=== PATIENT | female | born 1975 | race Caucasian/White ===

== ENCOUNTER 2017-09-27 16:24 | Emergency (ER) | payer OTHER ==
[2017-09-27 17:19] LABS: Hematocrit 43.8 % (35-47); Hemoglobin 14.6 gm/dl (12.0-16.0); Mean Cell Volume 98.9 fl (78-100); Mean Corpuscular Hgb Concent. 33.3 g/dl (32-36); Mean Platelet Volume 11.1 fl (6-9.5); Platelet Count 273 K/mm3 (150-450); Red Blood Count 4.43 M/mm3 (4.1-5.4); Red Cell Distribution Width 12.9 % (11.5-14.0); White Blood Count 6.5 K/mm3 (4.0-10.5)
[2017-09-27 17:33] LABS: ALBUMIN 4.1 g/dL (3.5-5.0); ALKALINE PHOSPHATASE 99 U/L (38-126); ANION GAP 11.9 MEQ/L (5-15); BLOOD UREA NITROGEN 12 mg/dL (7-17); CHLORIDE 107 mmol/L (98-107); Calcium 9.1 mg/dL (8.4-10.2); Carbon Dioxide 28 mmol/L (22-30); Creatinine 1 0.77 mg/dL (0.52-1.04); Glucose 95 mg/dL (74-106); Potassium 3.6 mmol/L (3.5-5.1); SGOT/AST 96 U/L (14-36); SGPT/ALT 79 U/L (0-35); SODIUM 143 mmol/L (137-145); Total Protein 7.1 g/dL (6.3-8.2)
[2017-09-27 18:45] VITALS: O2SAT 97
[2017-09-27 18:59] VITALS: BP 113/70; PULSE 62
[2017-09-27 19:04] LABS: Appearance CLEAR (CLEAR); Bilirubin NEGATIVE (NEGATIVE); Blood NEGATIVE Ery/ul (0-5); Glucose NEGATIVE (NEGATIVE); Ketones NEGATIVE (NEGATIVE); Leukocyte Esterase NEGATIVE (NEGATIVE); Nitrite NEGATIVE (NEGATIVE); Protein,Urine Dip NEGATIVE (Negative); Specific Gravity 1.005 (1.005-1.025); Urobilinogen NORMAL mg/dL (0-1)
--- NOTE | 2017-09-27 19:21 | ERPHSYRPT ---
- History of Present Illness Time Seen by Provider: 09/27/17 19:12 Historian: patient Exam Limitations: no limitations Patient Subjective Stated Complaint: Pt states "I have had diarrhea since yesterday, I have been nauseated and I just do not feel well." Triage Nursing Assessment: Pt alert and oriented X 3, skin pwd. Pt ambulates with an upright steady gait, able to speak in clear full sentences. Pt in no apparent respiratory distress. Allergies/Adverse Reactions: cephalexin monohydrate [From Keflex] Allergy (Severe, Verified 03/17/15 06:18) Difficulty Breathing throat swells closed morphine Allergy (Severe, Verified 03/17/15 06:18) Difficulty Breathing throat swells closed prednisone Allergy (Severe, Verified 03/17/15 06:18) Difficulty Breathing throat swells closed Home Medications: Diazepam [Valium] 1 tab PO Q6-8HPRN PRN 03/12/15 [History] Tizanidine HCl [Zanaflex] 1 tab PO Q6-8HPRN PRN 03/12/15 [History] Furosemide [Furosemide] 20 mg PO DAILY 09/27/17 [History] Gabapentin [Gabapentin] 600 mg PO DAILY 09/27/17 [History] Lisdexamfetamine Dimesylate [Vyvanse] 50 mg PO DAILY 09/27/17 [History] Meloxicam [Meloxicam] 15 mg PO DAILY 09/27/17 [History] Potassium Chloride 10 Meq Tab* [Klor Con 10 MEQ] 10 meq PO DAILY 09/27/17 [ History] Tizanidine HCl [Tizanidine HCl] 4 mg PO DAILY 09/27/17 [History] Hx Tetanus, Diphtheria Vaccination/Date Given: Yes Hx Influenza Vaccination/Date Given: Yes Hx Pneumococcal Vaccination/Date Given: No Immunizations Up to Date: Yes - Past Medical History Pertinent Past Medical History: Yes Neurological History: No Pertinent History, Migraines ENT History: No Pertinent History Cardiac History: Other Respiratory History: Other Endocrine Medical History: No Pertinent History Musculoskeletal History: Arthritis, Fibromyalgia, Other GI Medical History: GERD, Ulcer, Other History: No Pertinent History Female Reproductive Disorders: Endometriosis Other Medical History: wore holter monitor 4 years ago with nothing diagnosed and problems gone after dx with fibromyalgia and started on meds for the fibromyalgia, patient has had a hx of pleursy, has back and neck pain related to herniated disc in back and neck, patient has had a hx of low iron count - Past Surgical History Past Surgical History: Yes Neuro Surgical History: No Pertinent History Cardiac: No Pertinent History Respiratory: No Pertinent History Gastrointestinal: No Pertinent History Genitourinary: No Pertinent History Musculoskeletal: No Pertinent History Female Surgical History: Section, Hysterectomy Other Surgical History: c section x2 - Social History Smoking Status: Current every day smoker How long have you smoked: years Exposure to second hand smoke: Yes Drug Use: none Patient Lives Alone: No - Female History Hx Last Menstrual Period: hysterectomy Hx Now: No - Nursing Vital Signs Nursing Vital Signs: Initial Vital Signs Temperature 97.9 F 09/27/17 16:30 Pulse Rate 82 09/27/17 16:30 Respiratory Rate 16 09/27/17 16:30 Blood Pressure 139/81 09/27/17 16:30 O2 Sat by Pulse Oximetry 98 09/27/17 16:30 Pain Scale Pain Intensity 6 - Physical Exam SpO2: 97 Oxygen Delivery: Room Air Ordered Tests: Active Orders 24 hr Category Date Time Status CBC Stat Lab 09/27/17 16:40 Completed CMP Stat Lab 09/27/17 16:40 Completed UA W/RFX UR CULTURE Stat Lab 09/27/17 18:56 Completed Lab/Rad Data: Laboratory Result Diagrams 09/27/17 16:40 09/27/17 16:40 Laboratory Results 09/27/17 09/27/17 09/27/17 Range/Units 18:56 16:40 16:40 WBC 6.5 (4.0-10.5) K/mm3 RBC 4.43 (4.1-5.4) M/mm3 Hgb 14.6 (12.0-16.0) gm/dl Hct 43.8 (35-47) % MCV 98.9 (78-100) fl MCH 33.0 H (26-32) pg MCHC 33.3 (32-36) g/dl RDW 12.9 (11.5-14.0) % Plt Count 273 (150-450) K/mm3 MPV 11.1 H (6-9.5) fl Sodium 143 (137-145) mmol/L Potassium 3.6 (3.5-5.1) mmol/L Chloride 107 (98-107) mmol/L Carbon Dioxide 28 (22-30) mmol/L Anion Gap 11.9 (5-15) MEQ/L BUN 12 (7-17) mg/dL Creatinine 0.77 (0.52-1.04) mg/dL Estimated GFR > 60.0 ML/MIN Glucose 95 (74-106) mg/dL Calcium 9.1 (8.4-10.2) mg/dL Total Bilirubin 0.30 (0.2-1.3) mg/dL AST 96 H (14-36) U/L ALT 79 H (0-35) U/L Alkaline Phosphatase 99 (38-126) U/L Serum Total Protein 7.1 (6.3-8.2) g/dL Albumin 4.1 (3.5-5.0) g/dL Ur Collection Type VOID Urine Color LT.YELLOW (YELLOW) Urine Appearance CLEAR (CLEAR) Urine pH 8.0 (5-6) Ur Specific [place] 1.005 (1.005-1.025) Urine Protein NEGATIVE (Negative) Urine Ketones NEGATIVE (NEGATIVE) Urine Blood NEGATIVE (0-5) Henrique/ul Urine Nitrite NEGATIVE (NEGATIVE) Urine Bilirubin NEGATIVE (NEGATIVE) Urine Urobilinogen NORMAL (0-1) mg/dL Ur Leukocyte Esterase NEGATIVE (NEGATIVE) Urine Culture Reflexed NO (NO) Urine Glucose NEGATIVE (NEGATIVE) mg/dL Specimen Received 09/27/17 1845 - Departure Referrals: SIA WHITFIELD [Primary Care Provider] -
[2017-09-27] MEDS ORDERED: Pepcid 20 MG VIAL IV ONE (19:22)
[2017-09-27] MEDS ORDERED: Sodium Chloride 0.9% 1000 ML 1,000 ML IV STA (19:22)
[2017-09-27] MEDS ORDERED: Phenergan 25 MG INJ IV ONE (19:22)
--- NOTE | 2017-09-27 19:27 | ERPHSYRPT ---
- History of Present Illness Time Seen by Provider: 09/27/17 19:12 Source: patient Exam Limitations: no limitations Patient Subjective Stated Complaint: Pt states "I have had diarrhea since yesterday, I have been nauseated and I just do not feel well." Triage Nursing Assessment: Pt alert and oriented X 3, skin pwd. Pt ambulates with an upright steady gait, able to speak in clear full sentences. Pt in no apparent respiratory distress. Physician History: The patient is a 42-year-old female with her family complaining that she has nausea, vomiting, and diarrhea that began yesterday. She left work yesterday because of the illness. She may not be able to go to work again tonight. She denies fever or chills. She has not been able to "keep anything down". She has not been able to take any of her medicines. The diarrhea has gone from loose stools to water. She denies abdominal pain to me. She denies being lightheaded. Past medical history is significant for fibromyalgia. Timing/Duration: yesterday Severity: moderate Modifying Factors: Improves With: eating (worse) Associated Symptoms: nausea, vomiting, No abdominal pain, No fever Allergies/Adverse Reactions: cephalexin monohydrate [From Keflex] Allergy (Severe, Verified 03/17/15 06:18) Difficulty Breathing throat swells closed morphine Allergy (Severe, Verified 03/17/15 06:18) Difficulty Breathing throat swells closed prednisone Allergy (Severe, Verified 03/17/15 06:18) Difficulty Breathing throat swells closed Home Medications: Diazepam [Valium] 1 tab PO Q6-8HPRN PRN 03/12/15 [History] Tizanidine HCl [Zanaflex] 1 tab PO Q6-8HPRN PRN 03/12/15 [History] Furosemide [Furosemide] 20 mg PO DAILY 09/27/17 [History] Gabapentin [Gabapentin] 600 mg PO DAILY 09/27/17 [History] Lisdexamfetamine Dimesylate [Vyvanse] 50 mg PO DAILY 09/27/17 [History] Meloxicam [Meloxicam] 15 mg PO DAILY 09/27/17 [History] Potassium Chloride 10 Meq Tab* [Klor Con 10 MEQ] 10 meq PO DAILY 09/27/17 [ History] Tizanidine HCl [Tizanidine HCl] 4 mg PO DAILY 09/27/17 [History] Hx Tetanus, Diphtheria Vaccination/Date Given: Yes Hx Influenza Vaccination/Date Given: Yes Hx Pneumococcal Vaccination/Date Given: No Immunizations Up to Date: Yes - Review of Systems Constitutional: No Fever, No Chills Eyes: No Symptoms Ears, Nose, & Throat: No Symptoms Respiratory: No Cough, No Dyspnea Cardiac: No Chest Pain, No Edema, No Syncope Abdominal/Gastrointestinal: Nausea, Vomiting, Diarrhea, No Abdominal Pain Genitourinary Symptoms: No Dysuria Musculoskeletal: No Back Pain, No Neck Pain Skin: No Rash Neurological: No Dizziness, No Focal Weakness, No Sensory Changes Psychological: No Symptoms Endocrine: No Symptoms Hematologic/Lymphatic: No Symptoms Immunological/Allergic: No Symptoms All Other Systems: Reviewed and Negative - Past Medical History Pertinent Past Medical History: Yes Neurological History: No Pertinent History, Migraines ENT History: No Pertinent History Cardiac History: Other Respiratory History: Other Endocrine Medical History: No Pertinent History Musculoskeletal History: Arthritis, Fibromyalgia, Other GI Medical History: GERD, Ulcer, Other History: No Pertinent History Female Reproductive Disorders: Endometriosis Other Medical History: wore holter monitor 4 years ago with nothing diagnosed and problems gone after dx with fibromyalgia and started on meds for the fibromyalgia, patient has had a hx of pleursy, has back and neck pain related to herniated disc in back and neck, patient has had a hx of low iron count - Past Surgical History Past Surgical History: Yes Neuro Surgical History: No Pertinent History Cardiac: No Pertinent History Respiratory: No Pertinent History Gastrointestinal: No Pertinent History Genitourinary: No Pertinent History Musculoskeletal: No Pertinent History Female Surgical History: Section, Hysterectomy Other Surgical History: c section x2 - Social History Smoking Status: Current every day smoker How long have you smoked: years Exposure to second hand smoke: Yes Drug Use: none Patient Lives Alone: No - Female History Hx Last Menstrual Period: hysterectomy Hx Now: No - Nursing Vital Signs Nursing Vital Signs: Initial Vital Signs Temperature 97.9 F 09/27/17 16:30 Pulse Rate 82 09/27/17 16:30 Respiratory Rate 16 09/27/17 16:30 Blood Pressure 139/81 09/27/17 16:30 O2 Sat by Pulse Oximetry 98 09/27/17 16:30 Pain Scale Pain Intensity 6 - Physical Exam General Appearance: no apparent distress, alert Eye Exam: PERRL/EOMI, eyes nml inspection Ears, Nose, Throat Exam: normal ENT inspection, TMs normal, pharynx normal, moist mucous membranes Neck Exam: normal inspection, non-tender, supple, full range of motion Respiratory Exam: normal breath sounds, lungs clear, No respiratory distress Cardiovascular Exam: regular rate/rhythm, normal heart sounds, normal peripheral pulses Gastrointestinal/Abdomen Exam: soft, normal bowel sounds, No tenderness, No mass Back Exam: normal inspection, normal range of motion, No CVA tenderness, No vertebral tenderness Extremity Exam: normal inspection, normal range of motion, pelvis stable Neurologic Exam: alert, oriented x 3, cooperative, normal mood/affect, nml cerebellar function, nml station & gait, sensation nml, No motor deficits Skin Exam: normal color, warm, dry, No rash Lymphatic Exam: No adenopathy SpO2: 97 Oxygen Delivery: Room Air Ordered Tests: Active Orders 24 hr Category Date Time Status IV Insertion STAT Care 09/27/17 19:22 Active KUB Stat Exams 09/27/17 19:23 Ordered BMP Stat Lab 09/27/17 19:22 Ordered CBC Stat Lab 09/27/17 16:40 Completed CBC W DIFF Stat Lab 09/27/17 19:22 Ordered CMP Stat Lab 09/27/17 16:40 Completed HCG QUALITATIVE,SERUM Stat Lab 09/27/17 Ordered Lactic Acid Stat Lab 09/27/17 19:22 Ordered UA W/RFX UR CULTURE Stat Lab 09/27/17 18:56 Completed Medication Summary Generic Name Dose Route Start Last Admin Trade Name Freq PRN Reason Stop Dose Admin Sodium Chloride 1,000 mls @ 999 mls/hr 09/27/17 19:22 Sodium Chloride 0.9% 1000 Ml IV 09/27/17 20:22 .Q1H1M STA Discontinued Medications Generic Name Dose Route Start Last Admin Trade Name Freq PRN Reason Stop Dose Admin Famotidine 20 mg 09/27/17 19:22 Pepcid 20 Mg Vial IV 09/27/17 19:23 STAT ONE Promethazine HCl 25 mg 09/27/17 19:22 Phenergan 25 Mg Inj IV 09/27/17 19:23 STAT ONE Lab/Rad Data: Laboratory Result Diagrams 09/27/17 16:40 09/27/17 16:40 Laboratory Results 09/27/17 09/27/1709/27/18 Range/Units 18:56 16:40 16:40 WBC 6.5 (4.0-10.5) K/mm3 RBC 4.43 (4.1-5.4) M/mm3 Hgb 14.6 (12.0-16.0) gm/dl Hct 43.8 (35-47) % MCV 98.9 (78-100) fl MCH 33.0 H (26-32) pg MCHC 33.3 (32-36) g/dl RDW 12.9 (11.5-14.0) % Plt Count 273 (150-450) K/mm3 MPV 11.1 H (6-9.5) fl Sodium 143 (137-145) mmol/L Potassium 3.6 (3.5-5.1) mmol/L Chloride 107 (98-107) mmol/L Carbon Dioxide 28 (22-30) mmol/L Anion Gap 11.9 (5-15) MEQ/L BUN 12 (7-17) mg/dL Creatinine 0.77 (0.52-1.04) mg/dL Estimated GFR > 60.0 ML/MIN Glucose 95 (74-106) mg/dL Calcium 9.1 (8.4-10.2) mg/dL Total Bilirubin 0.30 (0.2-1.3) mg/dL AST 96 H (14-36) U/L ALT 79 H (0-35) U/L Alkaline Phosphatase 99 (38-126) U/L Serum Total Protein 7.1 (6.3-8.2) g/dL Albumin 4.1 (3.5-5.0) g/dL Ur Collection Type VOID Urine Color LT.YELLOW (YELLOW) Urine Appearance CLEAR (CLEAR) Urine pH 8.0 (5-6) Ur Specific [place] 1.005 (1.005-1.025) Urine Protein NEGATIVE (Negative) Urine Ketones NEGATIVE (NEGATIVE) Urine Blood NEGATIVE (0-5) Henrique/ul Urine Nitrite NEGATIVE (NEGATIVE) Urine Bilirubin NEGATIVE (NEGATIVE) Urine Urobilinogen NORMAL (0-1) mg/dL Ur Leukocyte Esterase NEGATIVE (NEGATIVE) Urine Culture Reflexed NO (NO) Urine Glucose NEGATIVE (NEGATIVE) mg/dL Specimen Received 09/27/17 1845 - Progress Progress Note: 09/27/17 19:30 The pt was asleep when I enter the room. Pt unfortunately was not seen quickly due to large influx of pts. I saw pt quickly after arriving. Pt seemed upset after waking up. I had ordered labs and meds for her. Pt decided to leave AMA. - Departure Time of Disposition: 19:32 Departure Disposition: AMA Clinical Impression: Gastroenteritis Condition: Stable Critical Care Time: No Referrals: SIA WHITFIELD [Primary Care Provider] -
== END 2017-09-27 19:39 | disposition left against medical advice (07) ==
LOC: ED 16:24
DX: K52.9 Noninfective gastroenteritis and colitis, unspecified (principal); R11.2 Nausea with vomiting, unspecified; Z79.899 Other long term (current) drug therapy
CPT/HCPCS: 36415; 80053; 81002; 85027; 99283

== ENCOUNTER 2019-12-13 06:41 | Day surgery (SDC) | payer OTHER ==
[~2019-12-13 06:41] MED LIST: Lactated Ringers 1,000 ML IV SCH
[2019-12-13] MEDS ORDERED: Ketamine HCl 50 MG/ML ONE (08:01)
[2019-12-13] MEDS ORDERED: DIPRIVAN 200 MG/20 ML IV ONE ×2 (08:01→08:39)
--- NOTE | 2019-12-13 09:12 | OP ---
SURGERY DATE/TIME: 12/13/2019813 PREOPERATIVE DIAGNOSIS: Epigastric pain and history of colon polyps. POSTOPERATIVE DIAGNOSES: 1) Mild gastritis. 2) Small polyps in the sigmoid colon. PROCEDURES: 1) EGD with cold forceps biopsy. 2) Colonoscopy with cold forceps biopsy. SURGEON: Dr. Griggs. ANESTHESIA: MAC. Medications given by anesthesia department. HISTORY: The patient is a 44 year old white female presenting now for endoscopic evaluation. She reports that she has been having problems with epigastric pain over the past few months. She reports that she was told previously not to take [id number] medicines but she has been taking Excedrin for migraine headaches which she knows she is not supposed to do. She also takes proton pump inhibitor medication. She wishes to have endoscopic evaluation of her stomach. She also has history of colon polyps where multiple polyps were removed the last visit a few years ago. The patient was felt the need to have endoscopic evaluation. She was appraised of the risks of the procedure including the risk of perforation, phlebitis, untoward reaction to medication, bleeding and missed lesions. The patient verbalized her understanding and desired to have the procedure performed. DESCRIPTION OF PROCEDURE: The patient was given the medications by the anesthesia department. She had continuous pulse oximetry, ECG monitoring, intermittent blood pressure monitoring and tidal CO2 monitoring during the examination. She was placed in the left lateral decubitus position. A bite block was placed. The flexible Olympus gastroscope was used to intubate the oropharynx. A view of the larynx was obtained and was normal. The scope was easily passed in the esophagus which was normal throughout its length. The stomach was entered where normal gastric rugal folds were seen and these distended nicely with insufflation of air. The scope was passed along the greater curvature of the stomach to the antrum. The pylorus encountered and intubated. Duodenum inspected found to be normal. The scope is withdrawn towards the stomach. A retroflex view was obtained of the lesser curvature, fundus and cardia regions of the stomach and these appeared to be essentially normal. The scope was then redirected towards the gastric antrum. Biopsies were obtained to rule out the presence of Helicobacter pylori-type organisms and to confirm the presence of gastritis. The scope was removed from the patient. Next, a digital rectal examination was performed and revealed normal anal sphincter tone and no masses. The flexible Olympus pediatric colonoscope was used to intubate the rectum. A view of the colon was developed sequentially to the cecum. Pictures obtained from the ileocecal valve and appendiceal orifice. Upon insertion and withdrawal, including a retroflex view in the rectum was noted small polyps in the sigmoid colon and these were biopsied using cold biopsy technique to determine the nature of the lesions. The scope was removed from the patient who tolerated the procedure well and was sent back to OP recovery in good condition. The prep was noted to be fair with liquid stool noted essentially throughout the colon. However, we were able to see the mucosa fairly well.
[2019-12-13 09:30] VITALS: PULSE 77; O2SAT 99
[2019-12-13 09:39] VITALS: BP 110/71
== END 2019-12-13 09:35 | disposition home or self-care (01) ==
LOC: SDC 06:41
PROVIDERS: ATTEND Family Medicine
DX: Z09 Encounter for follow-up examination after completed treatment for conditions other than malignant neoplasm (principal); Z86.010 Personal history of colon polyps; D12.5 Benign neoplasm of sigmoid colon; D12.8 Benign neoplasm of rectum; R10.13 Epigastric pain; K29.70 Gastritis, unspecified, without bleeding
CPT/HCPCS: J2704

== ENCOUNTER 2020-07-29 17:13 | Emergency (ER) | payer OTHER ==
[2020-07-29] MEDS ORDERED: Sodium Chloride 0.9% 1000 ML 1,000 ML IV STA (17:37)
[2020-07-29] MEDS ORDERED: Sodium Chloride 0.9% 1000 ML 1,000 ML ONE (17:42)
[2020-07-29 17:54] LABS: Absolute Neutrophil Ct (ANC) 6.22 (1.4-6.9); BASOPHIL % 0.2 % (0.0-0.4); Basophil (Absolute #) 0.02 (0-0.4); Eosinophil % 1.6 % (0.00-5.0); Eosinophil (Absolute #) 0.17 (0-0.5); Hematocrit 39.4 % (35-47); Hemoglobin 12.5 gm/dl (12.0-16.0); Lymphocytes % 32.5 % (24.0-44.0); Mean Cell Volume 100.5 fl (78-100); Mean Corpuscular Hemoglobin 31.9 pg (26-32); Mean Corpuscular Hgb Concent. 31.7 g/dl (32-36); Mean Platelet Volume 9.6 fl (7.5-11.0); Monocyte (Absolute #) 0.86 (0.0-1.3); Neutrophil % 57.7 % (36.0-66.0); Platelet Count 395 K/mm3 (150-450); Red Blood Count 3.92 M/mm3 (4.1-5.4); Red Cell Distribution Width 13.8 % (11.5-14.0); White Blood Count 10.8 K/mm3 (4.0-10.5)
[2020-07-29 18:00] LABS: Appearance SLIGHTLY CLOUDY (CLEAR); Bacteria RARE /HPF (NEGATIVE); Bilirubin NEGATIVE (NEGATIVE); Blood NEGATIVE Ery/ul (0-5); Epithelial Cells RARE /HPF (FEW); Glucose NEGATIVE (NEGATIVE); Ketones NEGATIVE (NEGATIVE); Leukocyte Esterase NEGATIVE (NEGATIVE); Mucus SLIGHT /HPF (NEGATIVE); Nitrite NEGATIVE (NEGATIVE); Protein,Urine Dip NEGATIVE (Negative); RBC NONE SEEN /HPF (0-2); Specific Gravity 1.019 (1.005-1.025); Urobilinogen NEGATIVE mg/dL (0-1); WBC 0-2 /HPF (0-5)
[2020-07-29 18:07] LABS: ALBUMIN 4.3 g/dL (3.5-5.0); BILIRUBIN,TOTAL 0.2 mg/dL (0.2-1.3); Calcium 9.3 mg/dL (8.4-10.2); Creatinine 1 1.29 mg/dL (0.52-1.04); EST GLOMERULAR FILTRATION RATE 47.1 ML/MIN; MAGNESIUM 1.9 mg/dL (1.6-2.3); Potassium 3.9 mmol/L (3.5-5.1); Total Protein 7.1 g/dL (6.3-8.2)
[2020-07-29 18:11] LABS: Amphetamine,Urine NEGATIVE (NEGATIVE); Barbiturate,Urine NEGATIVE (NEGATIVE); Benzodiazepine,Urine POSITIVE (NEGATIVE); Cocaine,Urine NEGATIVE (NEGATIVE); Methadone,Urine NEGATIVE (NEGATIVE); Opiate,Urine NEGATIVE (NEGATIVE); PCP,Urine NEGATIVE (NEGATIVE); THC,Urine POSITIVE (NEGATIVE)
[2020-07-29] MEDS ORDERED: TYLENOL 325 MG PO ONE (19:11)
[2020-07-29] MEDS ORDERED: TORAdol 30 mg Injection IV ONE (19:11)
[2020-07-29] MEDS ORDERED: Reglan 10 MG/2 ML IV ONE (19:11)
[2020-07-29] MEDS ORDERED: BABY ASPIRIN 81 MG CHEW PO ONE (19:12)
[2020-07-29] MEDS ORDERED: BENADRYL 50 MG/ML IV ONE (19:12)
[2020-07-29] MEDS ORDERED: BABY ASPIRIN 81 MG CHEW ONE (19:18)
[2020-07-29] MEDS ORDERED: Reglan 10 MG/2 ML ONE (19:18)
[2020-07-29] MEDS ORDERED: BENADRYL 50 MG/ML ONE (19:18)
[2020-07-29] MEDS ORDERED: TYLENOL 325 MG ONE (19:18)
[2020-07-29] MEDS ORDERED: TORAdol 30 mg Injection ONE (19:18)
[2020-07-29 19:59] VITALS: BP 104/70; PULSE 70; O2SAT 96
--- NOTE | 2020-07-29 20:00 | ERPHSYRPT ---
- History of Present Illness Time Seen by Provider: 07/29/20 17:52 Source: patient Exam Limitations: no limitations Patient Subjective Stated Complaint: Pt states that for the past week she has felt like she has heartburn but no pain but more like a tightness, states that she has pain below the left breast that radiates to the back, reports falling a lot this week, nauseous and can't eat but denies vomiting, extremely fatigued Triage Nursing Assessment: Pt brought self to the ER, vitals wnl, rates pain as 8/10, denies pain to abdomen w/and w/o palpatation, pain in the rib area below the left breast that radiates to the back, pulses normal, normal sinus, skin n/w/d, doesn't appear to be in any distress Physician History: 45 years old female with history of anxiety, fibromyalgia, tobacco abuse, COPD, chronic presented in the ER with chief complaint of chest tightness mostly in the left side which wraps around underneath her left breast for mild to moderate intensity without any significant aggravating or relieving factors but has noticed some increased chest tightness and burning sensation with activity. She does have history of acid reflux and has been taking medication which seem to be helping in this seems different. Denies any chest pain. Does have minimal productive smoker cough. Denies any fever or chills. Patient also reports having off-and-on headache since she got kicked on her left anterior forehead by her dog almost a week ago. She did not lose consciousness but her symptoms started afterwards. She feels foggy at times, wobbly and feel weakness all over. She denies any focal numbness tingling or weakness but generalized. Denies any difficulty speech. No abdominal pain nausea or vomiting. Timing/Duration: week(s) (2), intermittent, gradual onset, worse Severity: moderate Modifying Factors: Improves With: rest. Worsens With: movement Associated Symptoms: shortness of breath, heartburn, cough, chest pain, headaches, loss of appetite, malaise, weakness, No chills Allergies/Adverse Reactions: cephalexin monohydrate [From Keflex] Allergy (Severe, Verified 07/29/20 17:28) Difficulty Breathing throat swells closed morphine Allergy (Severe, Verified 07/29/20 17:28) Difficulty Breathing throat swells closed prednisone Allergy (Severe, Verified 07/29/20 17:28) Difficulty Breathing throat swells closed Home Medications: Diazepam [Valium] 1 tab PO Q6-8HPRN PRN 03/12/15 [History] Tizanidine HCl [Zanaflex] 1 tab PO Q6-8HPRN PRN 03/12/15 [History] Gabapentin 600 mg PO DAILY 09/27/17 [History] Potassium Chloride 10 Meq Tab* [Klor Con 10 MEQ] 10 meq PO DAILY 09/27/17 [History] Fenofibrate Nanocrystallized [Fenofibrate] 145 mg PO DAILY 12/11/19 [History] Omeprazole Magnesium [Prilosec] 40 mg PO BID 12/11/19 [History] Rosuvastatin Calcium [Crestor] 10 mg PO DAILY 12/11/19 [History] Trazodone HCl 50 mg [Desyrel 50 mg] 50 mg PO HS 12/11/19 [History] Hydroxyzine HCl 25 mg [Atarax 25 mg] 25 mg PO UD PRN 07/29/20 [History] Topiramate 25 mg PO DAILY 07/29/20 [History] Hx Tetanus, Diphtheria Vaccination/Date Given: Yes Hx Influenza Vaccination/Date Given: Yes Hx Pneumococcal Vaccination/Date Given: No Travel Risk - International Travel Have you traveled outside of the country in past 3 weeks: No - Coronavirus Screening Are you exhibiting any of the following symptoms?: No - Vaccine Status Have you recieved a Covid-19 vaccination: No - Review of Systems Constitutional: No Symptoms Eyes: No Symptoms Ears, Nose, & Throat: No Symptoms Respiratory: Cough, Dyspnea, Wheezing Cardiac: Chest Pain Abdominal/Gastrointestinal: No Symptoms Genitourinary Symptoms: No Symptoms Musculoskeletal: Myalgias Skin: No Symptoms Neurological: Gait Changes, Tremors, No Focal Weakness Psychological: Anxiety Endocrine: Polydipsia Hematologic/Lymphatic: No Symptoms Immunological/Allergic: No Symptoms - Past Medical History Pertinent Past Medical History: Yes Neurological History: No Pertinent History, Migraines ENT History: No Pertinent History Cardiac History: Other Respiratory History: Other Endocrine Medical History: No Pertinent History Musculoskeletal History: Arthritis, Fibromyalgia, Other GI Medical History: GERD, Ulcer, Other History: No Pertinent History Psycho-Social History: No Pertinent History Female Reproductive Disorders: Endometriosis Other Medical History: wore holter monitor 4 years ago with nothing diagnosed and problems gone after dx with fibromyalgia and started on meds for the fibromyalgia, patient has had a hx of pleursy, has back and neck pain related to herniated disc in back and neck, patient has had a hx of low iron count - Past Surgical History Past Surgical History: Yes Neuro Surgical History: No Pertinent History Cardiac: No Pertinent History Respiratory: No Pertinent History Gastrointestinal: No Pertinent History Genitourinary: No Pertinent History Musculoskeletal: No Pertinent History Female Surgical History: Section, Hysterectomy Other Surgical History: c section x2 - Social History Smoking Status: Current every day smoker How long have you smoked: years Exposure to second hand smoke: Yes Drug Use: none Patient Lives Alone: No - Female History Hx Now: No (hysterectomy) - Nursing Vital Signs Nursing Vital Signs: Initial Vital Signs Temperature 98.1 F 07/29/20 17:14 Pulse Rate 80 07/29/20 17:14 Respiratory Rate 17 07/29/20 17:14 Blood Pressure 105/78 07/29/20 17:14 O2 Sat by Pulse Oximetry 97 07/29/20 17:14 Pain Scale Pain Intensity 8 - Physical Exam General Appearance: no apparent distress, alert, anxiety Eye Exam: PERRL/EOMI, eyes nml inspection Ears, Nose, Throat Exam: normal ENT inspection, TMs normal, pharynx normal Neck Exam: normal inspection, non-tender, supple, full range of motion Respiratory Exam: normal breath sounds, lungs clear Cardiovascular Exam: regular rate/rhythm, normal heart sounds Gastrointestinal/Abdomen Exam: soft, normal bowel sounds, No tenderness Back Exam: normal inspection, normal range of motion, No CVA tenderness Extremity Exam: normal inspection, normal range of motion, pelvis stable Neurologic Exam: alert, oriented x 3, cooperative, vaccines solutions specialist II-XII nml as tested, normal mood/affect, nml cerebellar function, nml station & gait, sensation nml, No motor deficits, No sensory deficit Skin Exam: normal color SpO2 Interpretation: normal SpO2: 96 O2 Delivery: Room Air Ordered Tests: Active Orders 24 hr Category Date Time Status Director Enterprise Sales STAT Care 07/29/20 17:35 Active EKG-ER Only STAT Care 07/29/20 17:35 Active IV Insertion STAT Care 07/29/20 17:34 Active POCT Glucose Check STAT Care 07/29/20 17:35 Active Pulse Oximetry (ED) STAT Care 07/29/20 17:37 Active CHEST 1 VIEW (PORTABLE) Stat Exams 07/29/20 17:39 Taken HEAD WITHOUT CONTRAST [CT] Stat Exams 07/29/20 18:06 Taken CBC W DIFF Stat Lab 07/29/20 17:50 Completed CMP Stat Lab 07/29/20 17:50 Completed D-DIMER QUANTITATIVE Stat Lab 07/29/20 17:50 Completed LIPASE Stat Lab 07/29/20 17:50 Completed Lactic Acid Stat Lab 07/29/20 18:10 Completed MAGNESIUM Stat Lab 07/29/20 17:50 Completed TROPONIN Q3H Lab 07/29/20 17:50 Completed TROPONIN Q3H Lab 07/29/20 20:45 Ordered TROPONIN Q3H Lab 07/29/20 23:45 Ordered TROPONIN Q3H Lab 07/30/20 02:45 Ordered TROPONIN Q3H Lab 07/30/20 05:45 Ordered TSH [TSH, 3RD Generation] Stat Lab 07/29/20 17:41 Completed UA W/RFX UR CULTURE Stat Lab 07/29/20 17:41 Completed Urine Triage Profile Stat Lab 07/29/20 17:41 Completed Medication Summary Discontinued Medications Generic Name Dose Route Start Last Admin Trade Name Freq PRN Reason Stop Dose Admin Acetaminophen 975 mg 07/29/20 19:11 07/29/20 19:23 Tylenol 325 Mg PO 07/29/20 19:12 975 mg STAT ONE Administration Acetaminophen Confirm 07/29/20 19:18 Tylenol 325 Mg Administered 07/29/20 19:19 Dose 975 mg .ROUTE .STK-MED ONE Aspirin 324 mg 07/29/20 19:12 07/29/20 19:23 Baby Aspirin 81 Mg Chew PO 07/29/20 19:13 324 mg STAT ONE Administration Aspirin Confirm 07/29/20 19:18 Baby Aspirin 81 Mg Chew Administered 07/29/20 19:19 Dose 81 mg .ROUTE .STK-MED ONE Diphenhydramine HCl 25 mg 07/29/20 19:12 07/29/20 19:23 Benadryl 50 Mg/Ml IV 07/29/20 19:13 25 mg STAT ONE Administration Diphenhydramine HCl Confirm 07/29/20 19:18 Benadryl 50 Mg/Ml Administered 07/29/20 19:19 Dose 50 mg .ROUTE .STK-MED ONE Sodium Chloride 1,000 mls @ 999 mls/hr 07/29/20 17:37 07/29/20 18:44 Sodium Chloride 0.9% 1000 Ml IV 07/29/20 18:37 Infused .Q1H1M STA Infusion Sodium Chloride Confirm 07/29/20 17:42 Sodium Chloride 0.9% 1000 Ml Administered 07/29/20 17:43 Dose 1,000 mls @ ud .ROUTE .STK-MED ONE Ketorolac Tromethamine 30 mg 07/29/20 19:11 07/29/20 19:23 Toradol 30 Mg Injection IV 07/29/20 19:12 30 mg STAT ONE Administration Ketorolac Tromethamine Confirm 07/29/20 19:18 Toradol 30 Mg Injection Administered 07/29/20 19:19 Dose 30 mg .ROUTE .STK-MED ONE Metoclopramide HCl 10 mg 07/29/20 19:11 07/29/20 19:23 Reglan 10 Mg/2 Ml IV 07/29/20 19:12 10 mg STAT ONE Administration Metoclopramide HCl Confirm 07/29/20 19:18 Reglan 10 Mg/2 Ml Administered 07/29/20 19:19 Dose 10 mg .ROUTE .STK-MED ONE Lab/Rad Data: Laboratory Result Diagrams 07/29/20 17:50 07/29/20 17:50 Laboratory Results 07/29/20 07/29/20 07/29/20 Range/Units 18:10 17:50 17:50 WBC (4.0-10.5) K/mm3 RBC (4.1-5.4) M/mm3 Hgb (12.0-16.0) gm/dl Hct (35-47) % MCV (78-100) fl MCH (26-32) pg MCHC (32-36) g/dl RDW (11.5-14.0) % Plt Count (150-450) K/mm3 MPV (7.5-11.0) fl Gran % (36.0-66.0) % Eos # (Auto) (0-0.5) Absolute Lymphs (auto) (1.0-4.6) Absolute Monos (auto) (0.0-1.3) Lymphocytes % (24.0-44.0) % Monocytes % (0.0-12.0) % Eosinophils % (0.00-5.0) % Basophils % (0.0-0.4) % Absolute Granulocytes (1.4-6.9) Basophils # (0-0.4) D-Dimer 259 (215-500) ng/mL Sodium (137-145) mmol/L Potassium (3.5-5.1) mmol/L Chloride (98-107) mmol/L Carbon Dioxide (22-30) mmol/L Anion Gap (5-15) MEQ/L BUN (7-17) mg/dL Creatinine (0.52-1.04) mg/dL Estimated GFR ML/MIN Glucose (74-106) mg/dL Lactic Acid 0.9 (0.4-2.0) Calcium (8.4-10.2) mg/dL Magnesium (1.6-2.3) mg/dL Total Bilirubin (0.2-1.3) mg/dL AST (14-36) U/L ALT (0-35) U/L Alkaline Phosphatase (38-126) U/L Troponin I < 0.012 (0.000-0.034) ng/mL Serum Total Protein (6.3-8.2) g/dL Albumin (3.5-5.0) g/dL Lipase (23-300) U/L TSH 3rd Generation (0.47-4.68) mIU/L Urine Color (YELLOW) Urine Appearance (CLEAR) Urine pH (5-6) Ur Specific Mcdonald (1.005-1.025) Urine Protein (Negative) Urine Ketones (NEGATIVE) Urine Blood (0-5) Henrique/ul Urine Nitrite (NEGATIVE) Urine Bilirubin (NEGATIVE) Urine Urobilinogen (0-1) mg/dL Ur Leukocyte Esterase (NEGATIVE) Urine WBC (Auto) (0-5) /HPF Urine RBC (Auto) (0-2) /HPF U Epithel Cells (Auto) (FEW) /HPF Urine Bacteria (Auto) (NEGATIVE) /HPF Urine Mucus (Auto) (NEGATIVE) /HPF Urine Culture Reflexed (NO) Urine Glucose (NEGATIVE) mg/dL Urine Opiates Level (NEGATIVE) Ur Methadone (NEGATIVE) Urine Barbiturates (NEGATIVE) Ur Phencyclidine (PCP) (NEGATIVE) Urine Amphetamine (NEGATIVE) U Benzodiazepine Level (NEGATIVE) Urine Cocaine (NEGATIVE) Urine Marijuana (THC) (NEGATIVE) 07/29/20 07/29/20 07/29/20 Range/Units 17:50 17:50 17:41 WBC 10.8 H (4.0-10.5) K/mm3 RBC 3.92 L (4.1-5.4) M/mm3 Hgb 12.5 (12.0-16.0) gm/dl Hct 39.4 (35-47) % MCV 100.5 H (78-100) fl MCH 31.9 (26-32) pg MCHC 31.7 L (32-36) g/dl RDW 13.8 (11.5-14.0) % Plt Count 395 (150-450) K/mm3 MPV 9.6 (7.5-11.0) fl Gran % 57.7 (36.0-66.0) % Eos # (Auto) 0.17 (0-0.5) Absolute Lymphs (auto) 3.50 (1.0-4.6) Absolute Monos (auto) 0.86 (0.0-1.3) Lymphocytes % 32.5 (24.0-44.0) % Monocytes % 8.0 (0.0-12.0) % Eosinophils % 1.6 (0.00-5.0) % Basophils % 0.2 (0.0-0.4) % Absolute Granulocytes 6.22 (1.4-6.9) Basophils # 0.02 (0-0.4) D-Dimer (215-500) ng/mL Sodium 139 (137-145) mmol/L Potassium 3.9 (3.5-5.1) mmol/L Chloride 103 (98-107) mmol/L Carbon Dioxide 26 (22-30) mmol/L Anion Gap 14.0 (5-15) MEQ/L BUN 19 H (7-17) mg/dL Creatinine 1.29 H (0.52-1.04) mg/dL Estimated GFR 47.1 ML/MIN Glucose 108 H (74-106) mg/dL Lactic Acid (0.4-2.0) Calcium 9.3 (8.4-10.2) mg/dL Magnesium 1.9 (1.6-2.3) mg/dL Total Bilirubin 0.20 (0.2-1.3) mg/dL AST 17 (14-36) U/L ALT 8 (0-35) U/L Alkaline Phosphatase 63 (38-126) U/L Troponin I (0.000-0.034) ng/mL Serum Total Protein 7.1 (6.3-8.2) g/dL Albumin 4.3 (3.5-5.0) g/dL Lipase 79 (23-300) U/L TSH 3rd Generation 1.650 (0.47-4.68) mIU/L Urine Color (YELLOW) Urine Appearance (CLEAR) Urine pH (5-6) Ur Specific Mcdonald (1.005-1.025) Urine Protein (Negative) Urine Ketones (NEGATIVE) Urine Blood (0-5) Henrique/ul Urine Nitrite (NEGATIVE) Urine Bilirubin (NEGATIVE) Urine Urobilinogen (0-1) mg/dL Ur Leukocyte Esterase (NEGATIVE) Urine WBC (Auto) (0-5) /HPF Urine RBC (Auto) (0-2) /HPF U Epithel Cells (Auto) (FEW) /HPF Urine Bacteria (Auto) (NEGATIVE) /HPF Urine Mucus (Auto) (NEGATIVE) /HPF Urine Culture Reflexed (NO) Urine Glucose (NEGATIVE) mg/dL Urine Opiates Level (NEGATIVE) Ur Methadone (NEGATIVE) Urine Barbiturates (NEGATIVE) Ur Phencyclidine (PCP) (NEGATIVE) Urine Amphetamine (NEGATIVE) U Benzodiazepine Level (NEGATIVE) Urine Cocaine (NEGATIVE) Urine Marijuana (THC) (NEGATIVE) 07/29/20 07/29/20 Range/Units 17:41 17:41 WBC (4.0-10.5) K/mm3 RBC (4.1-5.4) M/mm3 Hgb (12.0-16.0) gm/dl Hct (35-47) % MCV (78-100) fl MCH (26-32) pg MCHC (32-36) g/dl RDW (11.5-14.0) % Plt Count (150-450) K/mm3 MPV (7.5-11.0) fl Gran % (36.0-66.0) % Eos # (Auto) (0-0.5) Absolute Lymphs (auto) (1.0-4.6) Absolute Monos (auto) (0.0-1.3) Lymphocytes % (24.0-44.0) % Monocytes % (0.0-12.0) % Eosinophils % (0.00-5.0) % Basophils % (0.0-0.4) % Absolute Granulocytes (1.4-6.9) Basophils # (0-0.4) D-Dimer (215-500) ng/mL Sodium (137-145) mmol/L Potassium (3.5-5.1) mmol/L Chloride (98-107) mmol/L Carbon Dioxide (22-30) mmol/L Anion Gap (5-15) MEQ/L BUN (7-17) mg/dL Creatinine (0.52-1.04) mg/dL Estimated GFR ML/MIN Glucose (74-106) mg/dL Lactic Acid (0.4-2.0) Calcium (8.4-10.2) mg/dL Magnesium (1.6-2.3) mg/dL Total Bilirubin (0.2-1.3) mg/dL AST (14-36) U/L ALT (0-35) U/L Alkaline Phosphatase (38-126) U/L Troponin I (0.000-0.034) ng/mL Serum Total Protein (6.3-8.2) g/dL Albumin (3.5-5.0) g/dL Lipase (23-300) U/L TSH 3rd Generation (0.47-4.68) mIU/L Urine Color YELLOW (YELLOW) Urine Appearance SLIGHTLY CLOUDY (CLEAR) Urine pH 6.0 (5-6) Ur Specific Mcdonald 1.019 (1.005-1.025) Urine Protein NEGATIVE (Negative) Urine Ketones NEGATIVE (NEGATIVE) Urine Blood NEGATIVE (0-5) Henrique/ul Urine Nitrite NEGATIVE (NEGATIVE) Urine Bilirubin NEGATIVE (NEGATIVE) Urine Urobilinogen NEGATIVE (0-1) mg/dL Ur Leukocyte Esterase NEGATIVE (NEGATIVE) Urine WBC (Auto) 0-2 (0-5) /HPF Urine RBC (Auto) NONE SEEN (0-2) /HPF U Epithel Cells (Auto) RARE (FEW) /HPF Urine Bacteria (Auto) RARE (NEGATIVE) /HPF Urine Mucus (Auto) SLIGHT (NEGATIVE) /HPF Urine Culture Reflexed NO (NO) Urine Glucose NEGATIVE (NEGATIVE) mg/dL Urine Opiates Level NEGATIVE (NEGATIVE) Ur Methadone NEGATIVE (NEGATIVE) Urine Barbiturates NEGATIVE (NEGATIVE) Ur Phencyclidine (PCP) NEGATIVE (NEGATIVE) Urine Amphetamine NEGATIVE (NEGATIVE) U Benzodiazepine Level POSITIVE (NEGATIVE) Urine Cocaine NEGATIVE (NEGATIVE) Urine Marijuana (THC) POSITIVE (NEGATIVE) - Progress Progress: improved, re-examined Progress Note: 07/29/20 19:59 45 years old is evaluated for multiple medical problems. EKG showed normal sinus rhythm with no acute ischemic changes. Negative troponin and D-dimer. Chest x-ray negative for any acute cardiopulmonary findings reviewed by me, official report is pending. I have obtained CT head because of her history of headache, generalized weakness and issues with gait at times and is negative for any acute finding. She has a nonfocal neuro exam throughout stay in the ER. I did not appreciate any gait changes while patient walking in the ER. She has grossly unremarkable chemistries except for ALFRED and is given fluid bolus. No UTI. Urine drug screen grossly negative. Her symptoms could be postconcussion syndrome from her most recent trauma plus she is taking benzos/Valium and Neurontin which could be contributing to her symptoms as well. She is given migraine cocktail, on reevaluation her headache is improved. Patient is feeling much better. With her symptoms going on for over a week I do not think patient needs second troponin. Does not have them many risk factors for CAD and heart chest tightness is not suggestive of angina but more of a bronchitis. She is advised to cut down on smoking and use inhaler which she has at home. She is advised not to take ibuprofen and have follow-up with primary care for reevaluation and recheck of her renal functions. Discussed signs symptoms of worsening needing return to ER which he seems understanding. Counseled pt/family regarding: lab results, diagnosis, rad results, smoking cessation - Departure Departure Disposition: Home Clinical Impression: Post concussion syndrome, Bronchitis, General weakness, ALFRED (acute kidney injury) Condition: Stable Critical Care Time: No Referrals: SIA WHITFIELD [Primary Care Provider] - (1-2 days for reevaluation) Instructions: Postconcussion Syndrome (DC), Acute Kidney Injury (DC), Generalized Weakness (DC) Additional Instructions: Drink plenty of fluids. Take Tylenol as needed for body aches. Do not take ibuprofen or any other NSAIDs. Follow-up with primary care physician for reevaluation and recheck of your kidney functions to make sure that your kidney functions are improved. Return to ER for worsening headache, numbness tingling weakness focally, chest pain palpitations or shortness of breath.
--- NOTE | 2020-07-30 08:31 | XRAY ---
Indication: Chest pain. Comparison: August 08, 2017. Portable apical lordotic chest remains clear. Heart not enlarged. Bony thorax intact again with minimal scoliosis. No new/acute findings.
--- NOTE | 2020-07-30 08:36 | XRAY ---
Indication: Headache, dizziness, and vertigo. Falling and nausea. Multiple contiguous axial images obtained through the head without contrast. Comparison: October 10, 2012. Normal appearing brain parenchyma, ventricles, and bony calvarium for patient's age. Visualized paranasal sinuses and mastoid air cells are clear. Impression: Continued normal CT head without contrast exam.
== END 2020-07-29 20:08 | disposition home or self-care (01) ==
LOC: ED 17:13
DX: F07.81 Postconcussional syndrome (principal)
CPT/HCPCS: 36000; 36415; 70450; 71045; 80053; 80307; 81001; 83605; 83690; 83735; 84443; 84484; 85025; 85379; 93005; 93041; 94760; 96360; 96374; 96375; 99285; J1200; J1885; A9270-GY

== ENCOUNTER 2022-05-18 06:07 | Day surgery (SDC) | payer OTHER ==
[2022-05-18] MEDS ORDERED: Lactated Ringers 1,000 ML IV SCH (06:30)
[2022-05-18] MEDS ORDERED: Xylocaine-Mpf 2% 5 Ml Vial ONE (07:02)
[2022-05-18] MEDS ORDERED: DIPRIVAN 200 MG/20 ML IV ONE ×2 (07:02→07:59)
[2022-05-18] MEDS ORDERED: Versed 2 MG/2 ML Injection ONE (07:57)
[2022-05-18 09:24] VITALS: BP 124/77; PULSE 91; O2SAT 97
--- NOTE | 2022-05-18 10:35 | OP ---
SURGERY DATE/TIME: 05/18/2022 0801 PREOPERATIVE DIAGNOSES: 1) Gastroesophageal reflux disease. 2) History of colon polyps. POSTOPERATIVE DIAGNOSES: 1) Mild gastritis. 2) Colon polyps x4. PROCEDURES: 1) EGD. 2) Colonoscopy. SURGEON: James Kilgore M.D. ANESTHESIA: MAC by Bryan Morales CRNA. ESTIMATED BLOOD LOSS: Minimal. SPECIMENS: 1) Three hot forceps polypectomy from the colon. 2) One cold forceps polypectomy from the colon. 3) Two cold forceps biopsies from the gastric antrum. DESCRIPTION OF PROCEDURE: After informed written consent was obtained, the patient was taken to the endoscopy suite. She was placed in the left lateral decubitus position and bite block inserted. The endoscope inserted in the posterior oropharynx and under direct visualization the esophagus was traversed. Esophageal mucosa had normal appearance. No lesions or defects. Upon entering the stomach, there was normal rugated gastric mucosa. There was some mild gastritis-type changes and no active bleeding in the gastric antrum. Pylorus was traversed. The duodenum had a normal mucosal appearance. Two cold forceps biopsies were taken in the gastric antrum with minimal bleeding and sent for Helicobacter pylori testing. No other abnormalities were encountered. The scope was removed and the scopes were switched. Digital rectal exam showed normal sphincter tone and no internal lesions. The scope was inserted in the rectum and sequentially the entire colonic mucosa was traversed. The level of the cecum was reached and verified with direct visualization of the ileocecal valve. Upon withdrawal there was one small sessile polyp in the proximal sigmoid colon which was grasped with cold forceps and removed in its entirety. There was one other larger polyp in the sigmoid colon which was removed with hot forceps. Two other small polyps were encountered in the rectal area which likewise were grasped with forceps cauterized and removed in entirety. Retroflexion showed no internal lesions. The scope was removed and the patient was transferred to the recovery room in good condition.
== END 2022-05-18 09:30 | disposition home or self-care (01) ==
LOC: SDC 06:07
PROVIDERS: ATTEND Family Medicine
DX: Z09 Encounter for follow-up examination after completed treatment for conditions other than malignant neoplasm (principal); Z86.010 Personal history of colon polyps; K21.9 Gastro-esophageal reflux disease without esophagitis; K29.70 Gastritis, unspecified, without bleeding; D12.5 Benign neoplasm of sigmoid colon; K62.1 Rectal polyp
CPT/HCPCS: J2250; J2704